=== PATIENT | female | born 1995 | race Caucasian/White ===

== ENCOUNTER → 2018-05-20 | Outpatient (CLI) | payer BC ==
--- NOTE | 2018-05-20 23:15 | US ---
EXAMINATION TYPE: US transvaginal DATE OF EXAM: 05/20/2018 COMPARISON: NONE CLINICAL HISTORY: 22-year-old female R10.2 PELVIC PAIN. Pelvic pain (primarily left-sided) during the patient's prior 2 menstrual cycles; past 2 cycles also longer; on oral contraceptives with no change in dosage TECHNIQUE: Transvaginal (TV) per order. Date of LMP: 05/18/2018 FINDINGS: EXAM MEASUREMENTS: Uterus: 6.3 x 3.7 x 2.6 cm Endometrial Stripe: 0.2 cm Right Ovary: 3.5 x 2.5 x 2.4 cm for a volume of 11.0 mL. Left Ovary: 2.2 x 2.7 x 1.5 cm for a volume of 4.7 mL. 1. Uterus: Anteverted 2. Endometrium: thickness appears wnl for day 3 LMP 3. Right Ovary: Approximately 6 small follicles are demonstrated. There is mixed arterial and venous flow demonstrated. 4. Left Ovary: multifollicular with approximately 5 small follicles, largest simple follicle = 0.8x 0 .8 x 0.6cm. Satisfactory arterial and venous flow is demonstrated. 5. Bilateral Adnexa: wnl 6. Posterior cul-de-sac: wnl IMPRESSION: 1. Follicular change in both ovaries. No evidence for ovarian torsion by ultrasound. 2. Endometrial stripe measuring 2 mm.
== END | disposition home or self-care (01) ==
LOC: RADUSWWP 15:41
PROVIDERS: ATTEND Family Medicine
DX: R10.2 Pelvic and perineal pain (principal)
CPT/HCPCS: 76830